=== PATIENT | female | born 1990 ===

== ENCOUNTER 2024-01-25 19:05 | Emergency (ER) | payer OTHER, SELFPAY ==
[2024-01-25 19:16] VITALS: BP 143/84; PULSE 100; RESP 18; TEMP 36.2; O2SAT 100; BMI 41.6
--- NOTE | 2024-01-25 20:03 | MHC.EDTECH ---
Patient brought into triage area,1st set of blood cultures and labs obtained and sent to lab. Attempted to draw the second set patient was unable to tolerate and vomited 300MLS ,Pratima CASTILLO was made aware.
[2024-01-25] MEDS: Ondansetron ODT 4 MG TAB.RAPDIS TRANSLINGU (20:07)
[2024-01-25 20:11] LABS: MANUAL DIFF FLAG NO
[2024-01-25 20:13] LABS: Basophils Percent Auto 0.3 % (0-2); Eosinophils Absolute Auto 0.3 X10*3/uL (0.0-0.4); Eosinophils Percent Auto 2.3 % (0-4); Hematocrit 37.2 % (37.0-47.0); Hemoglobin 12.9 g/dl (12.0-16.0); Imm Gran Abs Auto 0.04 X10*3/uL (0.00-0.03); Imm Gran Pct Auto 0.4 % (0.0-0.4); Lymphocytes Absolute Auto 2.9 X10*3/uL (1.2-4.9); Lymphocytes Percent Auto 26.7 % (20-40); Mean Corpuscular HGB Conc 34.7 g/dl (31.0-35.0); Mean Corpuscular Hemoglobin 30.3 pg (27.0-33.0); Mean Corpuscular Volume 87.3 fL (80.0-98.0); Mean Platelet Volume 11.5 fL (9.4-12.3); Monocytes Absolute Auto 0.7 X10*3/uL (0.1-1.2); Monocytes Percent Auto 6.8 % (2-11); Neutrophils Absolute Auto 6.9 x10*3/uL (2.0-8.3); Neutrophils Percent Auto 63.5 % (45-73); Platelet Count 167 X10*3/uL (160-400); Red Blood Count 4.26 X10*6/uL (4.20-5.50); Red Cell Distribution Width 12.1 % (11.0-16.0); White Blood Count 10.8 X10*3/uL (4.8-10.8)
--- NOTE | 2024-01-25 20:13 | ED.DENTAL ---
HPI - Dental/Oral General Chief complaint: Dental/Oral Stated complaint: left swollen jaw/hard to swallow Time Seen by Provider: 01/25/24 23:14 Source: patient Mode of arrival: ambulatory Limitations: no limitations History of Present Illness HPI Narrative: Patient without any dental caries noticed swelling of the left submandibular area 2 days ago sudden onset increases on chewing any food no fever no skin redness no dental pain Related Data Allergies Allergy/AdvReac Type Severity Reaction Status Date / Time pineapple [PINEAPPLE] Allergy Unknown HIVES Verified 01/25/24 19:20 Review of Systems Review of Systems: Yes all other systems are reviewed and are negative [facility] Social History Social History Advance Directives: No Advance Directives Information Provided: Yes Physical Exam Vital Signs: Vital Signs: Last Vital Signs Temp 96.4 F L 01/25/24 22:02 Pulse 90 01/25/24 22:02 Resp 18 01/25/24 22:02 BP 151/80 H 01/25/24 22:02 Pulse Ox 100 01/25/24 22:02 O2 Del Method Room Air 01/25/24 22:02 BMI result Body Mass Index 41.6 Appearance: Alert. Oriented X3. No acute distress. ENT: Pharynx normal. Oral Mucosa moist Neck: Normal inspection. Neck supple. Slight tenderness of left submandibular gland bloated normal milky discharge from the Christiana's duct no stone palpable teeth normal no gum swelling CVS: Normal heart rate and rhythm. Pulses normal. Respiratory: No respiratory distress. Equal air entry bilateral, no wheezing/rales/rhonchi Abdomen: Soft and nontender. Neuro: Oriented X 3. Course Course Course Narrative: This is a Rapid Medical Examination (RME) in triage, full HPI, ROS, assessment and plan per primary provider in the Main ED. 34 yo female presenting with left lower dental pain and swelling that started 4 days ago and has been getting worse. Swelling now going into the neck and having difficulty opening the mouth. Handling secretions normally in triage. Plan: CT neck soft tissue, labs, cultures Medications Administered Discontinued Medications Generic Name Dose Route Start Last Admin Trade Name Freq PRN Reason Stop Dose Admin Acetaminophen 650 mg 01/25/24 22:03 01/25/24 22:05 Acetaminophen 325 Mg Tablet PO 01/25/24 22:04 650 mg ONCE ONE Administration Ondansetron HCl 4 mg 01/25/24 20:02 01/25/24 20:07 Ondansetron Odt 4 Mg Tab.Rapdis TRANSLINGU 01/25/24 20:03 4 mg ONCE ONE Administration Medical Decision Making Medical Decision Making [facility] Narrative: Patient clinically has small stone in duct of left submandibular gland nontoxic look CBC normal tried to milk the Christiana's ducts patient felt slightly better was given sour drops advised to use sour drop and warm packs Differential Diagnosis Differential Diagnoses: The differential diagnosis associated with the presentation includes Sialadenitis/sialolithiasis/dental abscess Lab Data [facility] Lab Attestation statement: I reviewed the patient's lab results. 01/25/24 19:51 01/25/24 19:51 Labs: Lab Results 01/25/24 Range/Units 19:51 WBC 10.8 (4.8-10.8) X10*3/uL RBC 4.26 (4.20-5.50) X10*6/uL Hgb 12.9 (12.0-16.0) g/dl Hct 37.2 (37.0-47.0) % MCV 87.3 (80.0-98.0) fL MCH 30.3 (27.0-33.0) pg MCHC 34.7 (31.0-35.0) g/dl RDW 12.1 (11.0-16.0) % Plt Count 167 (160-400) X10*3/uL MPV 11.5 (9.4-12.3) fL Immature Gran % (Auto) 0.4 (0.0-0.4) % Neut % (Auto) 63.5 (45-73) % Lymph % (Auto) 26.7 (20-40) % [place] % (Auto) 6.8 (2-11) % Eos % (Auto) 2.3 (0-4) % Baso % (Auto) 0.3 (0-2) % Lymph # (Auto) 2.9 (1.2-4.9) X10*3/uL [place] # (Auto) 0.7 (0.1-1.2) X10*3/uL Eos # (Auto) 0.3 (0.0-0.4) X10*3/uL Baso # (Auto) 0.0 (0.0-0.2) X10*3/uL Abs Immat Gran (auto) 0.04 H (0.00-0.03) X10*3/uL Absolute Neuts (auto) 6.9 (2.0-8.3) x10*3/uL Absolute Nucleated RBC 0.000 (0.0-0.012) X10*3/uL Nucleated RBC % (auto) 0.0 (0.0-0.2) /100WBC Sodium 140 (135-145) mmol/L Potassium 3.3 (3.3-5.1) mmol/L Chloride 107 (96-108) mmol/L Carbon Dioxide 25 (22-29) mmol/L Anion Gap 11 L (12-20) BUN 11 (9-16) mg/dL Creatinine 0.77 (0.5-1.4) mg/dL Estim Creat Clear Calc 118.1 Estimated GFR > 60 Random Glucose 87 (60-115) mg/dL Lactic Acid 0.6 (0.5-2.0) mmol/L Calcium 9.0 (8.4-10.2) mg/dL Discharge Plan Discharge Clinical Impression: Sialolithiasis of submandibular gland Patient Disposition: Home, Self-Care Instructions: Sialoadenitis (ED) Additional Instructions: Your swelling of the salivary gland is likely from the stone in the duct Apply warm packs, Tylenol/Motrin for pain Sour drops as advised Report to the ER if swelling continued to get worse with redness and increased pain Print Language: Mongolian
[2024-01-25 20:21] LABS: Lactic Acid 0.6 mmol/L (0.5-2.0)
[2024-01-25 20:24] LABS: Anion Gap 11 (12-20); Blood Urea Nitrogen 11 mg/dL (9-16); Carbon Dioxide 25 mmol/L (22-29); Chloride 107 mmol/L (96-108); Creatinine Clr Calc Pharmacy 118.1; Estimated Glomerular Filt Rate > 60; Glucose Random 87 mg/dL (60-115); Potassium 3.3 mmol/L (3.3-5.1); Sodium 140 mmol/L (135-145)
[2024-01-25 22:02] VITALS: BP 151/80; PULSE 90; RESP 18; TEMP 35.8; O2SAT 100
[2024-01-25] MEDS: Acetaminophen 325 MG TABLET 650 MG PO (22:05)
[2024-01-26 00:04] VITALS: BP 125/84; PULSE 85; RESP 17; TEMP 36.1; O2SAT 100
== END 2024-01-26 00:04 | disposition home or self-care (01) ==
PROVIDERS: Physician Assistant; Emergency Provider Internal Medicine
DX: K11.20 Sialoadenitis, unspecified (principal); Z79.899 Other long term (current) drug therapy
CPT/HCPCS: 36415; 80048; 83605; 85025; 87040; 99283